=== PATIENT | male | born 1960 | race Caucasian/White ===

== ENCOUNTER 2020-11-08 17:31 | Emergency (ER) | payer OTHER ==
[2020-11-08 18:02] LABS: EOS # 0.2 (0.04-0.40); HEMOGLOBIN 14.2 g/dL (13.5-18.0); LYMPH# 3.9 (1.50-4.00); MEAN CELL VOLUME 85 fl (78-100); MEAN CORPUSCULAR HEMOGLOBIN 29 pg (27-31); MEAN CORPUSCULAR HGB CONC 34 g/dL (33-37); MONO # 0.6 (0.20-0.80); NEU # 3.1 (1.40-6.50); PLATELET COUNT 303 K/mm3 (130-400); RED BLOOD COUNT 4.97 M/mm3 (4.20-5.60); RED CELL DISTRIBUTION WIDTH 12.4 % (11.5-14.5); WHITE BLOOD COUNT 7.9 K/mm3 (4.8-10.8)
[2020-11-08 18:08] LABS: POTASSIUM 3.8 mmol/L (3.5-5.1)
[2020-11-08 18:09] LABS: CALCIUM 8.7 mg/dL (8.3-10.5)
[2020-11-08 20:20] VITALS: BP 140/94
== END 2020-11-08 20:00 | disposition home or self-care (01) ==
LOC: ED 17:31
PROVIDERS: Nurse Practitioner Family
DX: S01.81XA Laceration without foreign body of other part of head, initial encounter (principal); Z88.6 Allergy status to analgesic agent; W01.198A Fall on same level from slipping, tripping and stumbling with subsequent striking against other object, initial encounter; Y92.410 Unspecified street and highway as the place of occurrence of the external cause